=== PATIENT | female | born 2000 | race Caucasian/White ===

== ENCOUNTER 2019-05-04 12:58 | Emergency (ER) | payer OTHER ==
[2019-05-04 13:10] VITALS: BP 127/77; PULSE 96; TEMP 98.5; BMI 23.2
--- NOTE | 2019-05-04 13:18 | PDOC ---
History of Present Illness - General Chief Complaint: Sore Throat Stated Complaint: STREP Time Seen by Provider: 05/04/19 13:13 - History of Present Illness Initial Comments: 05/04/19 13:18 CHIEF COMPLAINT: sore throat HISTORY OF PRESENT ILLNESS: 19 yo F with no PMH presents to [facility] with sore throat x 2 days. Patient reports subjective fever but has not taken her temperature at home. Denies any vomiting or diarrhea, denies abdominal pain. Patient denies any difficulty speaking or swallowing. No recent travel or sick contacts. PAST MEDICAL HISTORY: Denies past medical history FAMILY HISTORY: Denies SOCIAL HISTORY: Denies tobacco, alcohol, illicit drug use. SURGICAL HISTORY: Denies ALLERGIES: No known drug allergies REVIEW OF SYSTEMS General/Constitutional: Denies fever or chills. Denies weakness, weight change. HEENT: Throat pain x 2 days. Denies change in vision. Denies ear pain or discharge. Cardiovascular: Denies chest pain or shortness of breath. Respiratory: Denies cough, wheezing, or hemoptysis. Gastrointestinal: Denies nausea, vomiting, diarrhea or constipation. Denies rectal bleeding. Genitourinary: Denies dysuria, frequency, or change in urination. Musculoskeletal: Denies joint or muscle swelling or pain. Denies neck or back pain. Skin and breasts: Denies rash or easy bruising. Neurologic: Denies headache, vertigo, loss of consciousness, or loss of sensation. Psychiatric: Denies depression or anxiety. PHYSICAL EXAM General Appearance: Well-appearing, appropriately dressed. No apparent distress , no intoxication. HEENT: Exudate to b/l tonsils, tonsils 2+ b/l. No JAVA SOFTWARE ARCHITECT appreciated. EOMI, PERRLA , normal voice, TMs normal, pharynx normal. No conjunctival pallor. No photophobia, scleral icterus. Neck: Supple. Trachea midline. No tenderness, rigidity, carotid bruit, stridor , lymphadenopathy, or thyromegaly. Respiratory/Chest: Lungs CTAB. No shortness of breath, chest tenderness, respiratory distress, accessory muscle use. No crackles, rales, rhonchi, stridor , wheezing, dullness Cardiovascular: RRR. S1, S2. No JVD, murmur, bradycardia, tachycardia. Vascular Pulses: Dorsalis-Pedis (R): 2+, Dorsalis-Pedis (L): 2+ Gastrointestinal/Abdominal: Normal bowel sounds. Abdomen soft, non-distended. No tenderness or rebound tenderness. No organomegaly, pulsatile mass, guarding , hernia, hepatomegaly, splenomegaly. Lymphatic: No adenopathy, tenderness. Musculoskeletal/Extremities: Normal inspection. FROM of all extremities, normal capillary refill. Pelvis Stable. No CVA tenderness. No tenderness to extremities, pedal edema, swelling, erythema or deformity. Integumentary: Appropriate color, dry, warm. No cyanosis, erythema, jaundice or rash Neurologic: contact clerk II-XII intact. Fully oriented, alert. Appropriate mood/affect. Motor strength 5/5. No appreciable EOM palsy, facial droop or sensory deficit. 05/04/19 13:32 Past History - Past Medical History Allergies/Adverse Reactions: Allergies Allergy/AdvReac Type Severity Reaction Status Date / Time No Known Allergies Allergy Verified 05/04/19 13:06 Home Medications: Ambulatory Orders Amoxicillin - [Amoxicillin 500mg Capsule -] 500 mg PO BID #14 capsule 05/04/19 Asthma: No Cancer: No Cardiac Disorders: No COPD: No CHF: No Diabetes: No HTN: No Seizures: No Thyroid Disease: No - Immunization History Immunization Up to Date: Yes - Psycho Social/Smoking Cessation Hx Smoking History: Never smoked Hx Alcohol Use: No Drug/Substance Use Hx: No Hx Substance Use Treatment: No *Physical Exam - Vital Signs Last Vital Signs Temp Pulse Resp BP Pulse Ox 98.5 F 96 H 17 127/77 97 05/04/19 13:08 05/04/19 13:08 05/04/19 13:08 05/04/19 13:08 05/04/19 13:08 Medical Decision Making - Medical Decision Making 05/04/19 13:34 19 yo F with no PMH presents to [facility] with sore throat x 3 days -Strep swab sent. 05/04/19 13:58 strep positive amoxicillin rx sent to pharm Advised patient to take medication as prescribed and follow up with PCP in one week. Advised patient of signs and symptoms for return to ED. Patient verbalized understanding and agrees to plan. Discharge - Discharge Information Problems reviewed: Yes Clinical Impression/Diagnosis: Strep throat Condition: Stable Disposition: HOME - Admission No - Additional Discharge Information Prescriptions: Amoxicillin - [Amoxicillin 500mg Capsule -] 500 mg PO BID #14 capsule - Follow up/Referral Referrals: Levy Moulton MD [Staff Physician] - - Patient Discharge Instructions Patient Printed Discharge Instructions: DI for Strep Throat - Post Discharge Activity Work/Back to School Note: Back to Work
== END 2019-05-04 14:11 | disposition home or self-care (01) ==
LOC: JERFT 12:58
DX: J02.0 Streptococcal pharyngitis (principal)
CPT/HCPCS: 87880; 99281-25

== ENCOUNTER 2020-06-17 14:00 | Inpatient (IN) | payer OTHER ==
[2020-06-17 15:26] VITALS: BMI 30.4
[2020-06-17] MEDS ORDERED: DINOPROSTONE 10 MG VAGINAL SUPPOSITORY VG ONE (15:30)
[2020-06-17 15:47] LABS: BASO % 0.4 % (0-2.0); EOS % 0.4 % (0-4.5); HEMATOCRIT 29.7 % (32.4-45.2); HEMOGLOBIN 10.1 GM/dL (10.7-15.3); LYMPH % 18.7 % (8-40); MCH 28.6 pg (25.7-33.7); MEAN CELL VOLUME 84.1 fl (80-96); MEAN PLT VOLUME 8.2 fl (7.5-11.1); MONO % 7.3 % (3.8-10.2); NEUT % 73.2 % (42.8-82.8); PLATELET COUNT 155 K/MM3 (134-434); RBC 3.53 M/mm3 (3.60-5.2); RDW 15.5 % (11.6-15.6); WHITE BLOOD COUNT 6.7 K/mm3 (4.0-10.0)
[2020-06-17 15:53] LABS: INR 0.96 (0.83-1.09); PROTHROMBIN TIME (PATIENT) 11.8 SEC (9.7-13.0)
[2020-06-17 15:55] LABS: ACTIVATED PTT 25.9 SECONDS (25.2-36.5)
[2020-06-17 16:06] LABS: BLOOD UREA NITROGEN 9.3 mg/dL (7-18); CALCIUM 8.9 mg/dL (8.5-10.1)
[2020-06-17 16:10] LABS: CREATININE 0.6 mg/dL (0.55-1.3)
[2020-06-17] MEDS: ELECTROLYTE-148 SOLN 1,000 ML IV SCH (20:00)
[2020-06-17] MEDS ORDERED: BUTORPHANOL TARTRATE 1 MG/ML VIAL IVPB PRN (20:34)
[2020-06-17] MEDS ORDERED: BUTORPHANOL TARTRATE 2 MG/ML VIAL ONE (21:02)
[2020-06-18] MEDS ORDERED: OXYTOCIN 20 UNITS in 0.9% NS 20 UNIT/1,000 ML INFUS.BAG IV ONE ×3 (00:22→03:16)
[2020-06-18] MEDS ORDERED: LIDOCAINE HCL 1% PRESERVATIVE FREE - 30ML VIAL ONE (00:23)
[2020-06-18] MEDS ORDERED: BENZOCAINE 20% 57 GM BOTTLE TP PRN (00:32)
[2020-06-18] MEDS ORDERED: BISACODYL 10 MG SUPP.RECT PR PRN (00:32)
[2020-06-18] MEDS ORDERED: BENZOCAINE 28 GM HEMORRHOIDAL OINTMENT RC PRN (00:32)
[2020-06-18] MEDS ORDERED: METHYLERGONOVINE MALEATE 0.2 MG/1 ML AMP IM PRN (00:32)
[2020-06-18] MEDS ORDERED: WITCH HAZEL 50% (TUCKS) 40 PAD/JAR PAD TP PRN (00:32)
[2020-06-18 01:36] LABS: CORD HCO3 22.7 mmHg (20-29); CORD PCO2 60.4 mmHg (30-78); CORD pH 7.192 (7.14-7.44)
[2020-06-18] MEDS ORDERED: IBUPROFEN 600 MG TABLET (FP) PO ONE (01:36)
[2020-06-18] MEDS ORDERED: ACETAMINOPHEN 325 MG TABLET (FP) ONE (01:36)
[2020-06-18 01:38] LABS: CORD BASE EXCESS -4.9 mmol/L (0-2); CORD HCO3 20.5 mmHg (20-29); CORD PCO2 39.4 mmHg (30-78); CORD pH 7.334 (7.14-7.44)
[2020-06-18] MEDS: IBUPROFEN 600 MG TABLET (FP) PO PRN (01:40)
[2020-06-18] MEDS: ACETAMINOPHEN 325 MG TABLET (FP) PO PRN (01:40)
[2020-06-18] MEDS: OXYTOCIN 20 UNITS in 0.9% NS 20 UNIT/1,000 ML INFUS.BAG IV SCH (03:59)
[2020-06-18 08:43] LABS: POC NITRAZINE POS
[2020-06-19] MEDS: IBUPROFEN 600 MG TABLET (FP) PO PRN ×2 (02:21→18:30)
[2020-06-19] MEDS: ACETAMINOPHEN 325 MG TABLET (FP) PO PRN ×2 (02:21→18:30)
[2020-06-19] MEDS: OXYTOCIN 20 UNITS in 0.9% NS 20 UNIT/1,000 ML INFUS.BAG IV SCH (05:29)
[2020-06-19] MEDS: ELECTROLYTE-148 SOLN 1,000 ML IV SCH (05:29)
[2020-06-19 08:36] LABS: BASO % 0.4 % (0-2.0); EOS % 1.2 % (0-4.5); HEMATOCRIT 23.4 % (32.4-45.2); HEMOGLOBIN 7.9 GM/dL (10.7-15.3); LYMPH % 29.1 % (8-40); MCH 28.4 pg (25.7-33.7); MCHC 33.7 g/dl (32.0-36.0); MEAN CELL VOLUME 84.3 fl (80-96); MEAN PLT VOLUME 7.9 fl (7.5-11.1); MONO % 7.3 % (3.8-10.2); PLATELET COUNT 131 K/MM3 (134-434); RBC 2.78 M/mm3 (3.60-5.2); RDW 15.1 % (11.6-15.6); WHITE BLOOD COUNT 7.9 K/mm3 (4.0-10.0)
[2020-06-20] MEDS: IBUPROFEN 600 MG TABLET (FP) PO PRN (05:56)
[2020-06-20] MEDS: ACETAMINOPHEN 325 MG TABLET (FP) PO PRN (05:56)
[2020-06-20 09:05] VITALS: BP 135/78; PULSE 76; TEMP 98.4
== END 2020-06-20 11:45 | disposition home or self-care (01) | DRG 560 ==
LOC: JLDR 14:00 → J3W 06-18 03:25
PROVIDERS: ADMIT Obstetrics & Gynecology; ATTEND Obstetrics & Gynecology
PROC: 3E0P7VZ Introduction of Hormone into Female Reproductive, Via Natural or Artificial Opening (ICD-10-PCS; 2020-06-17)
PROC: 10E0XZZ Delivery of Products of Conception, External Approach (ICD-10-PCS; principal; 2020-06-18)
DX: O48.0 Post-term pregnancy (principal); Z3A.40 40 weeks gestation of pregnancy; Z37.0 Single live birth
CPT/HCPCS: 36415; 36600; 59409; 80048; 82803; 83986-QW; 85025; 85610; 85730; 86780; 86850; 86900; 86901; C9803; U0003